=== PATIENT | female | born 1985 | race Caucasian/White ===

== ENCOUNTER 2022-08-16 16:29 | Outpatient (REF) | payer MEDICAID, SELFPAY ==
--- NOTE | ~2022-08-16 | XR_ITS ---
EXAMINATION: XR CHEST 2 VIEWS CLINICAL INFORMATION: Shortness of breath and cough of 3 days' duration. COMPARISON: None. TECHNIQUE: Frontal and lateral views of the chest were obtained. FINDINGS: The heart, great vessels, pulmonary vasculature and mediastinum are normal. There is a small moderate patchy infiltrate in the mid left lung, likely the upper lobe. There is no acute osseous abnormality. XR/XR chest 2V IMPRESSION: A mild to moderate patchy mid left lung infiltrate is seen, consistent with acute pneumonia. A preliminary report was provided by the [facility] on 08/19/2022.
== END 2022-08-16 16:30 | disposition home or self-care (01) ==
LOC: HO.XRAY 16:29
PROVIDERS: PCP Nurse Practitioner Family; Visit Provider Nurse Practitioner Family
DX: R05.9 Cough, unspecified (principal)
CPT/HCPCS: 71046

== ENCOUNTER 2022-12-28 12:26 | Outpatient (REF) | payer MEDICAID, SELFPAY ==
--- NOTE | ~2022-12-28 | XR_ITS ---
EXAMINATION: XR RIBS, LEFT CLINICAL INFORMATION: Chest pain COMPARISON: None available. TECHNIQUE: 3 views of the left ribs were obtained. Chest PA 1 view FINDINGS: Lungs are clear. No consolidation, pneumothorax, or pleural effusion. The cardiomediastinal silhouette and pulmonary vasculature are normal. Osseous structures are unremarkable. Ribs are intact. No fractures are identified. XR/XR ribs LT min 3V w CXR1V IMPRESSION: Unremarkable chest and left rib series.
== END 2022-12-28 12:27 | disposition home or self-care (01) ==
LOC: HO.XRAY 12:26
PROVIDERS: PCP Internal Medicine; Visit Provider Internal Medicine
DX: R07.9 Chest pain, unspecified (principal)
CPT/HCPCS: 71101

== ENCOUNTER 2023-09-15 09:48 | Outpatient (REF) | payer MEDICAID, SELFPAY ==
[2023-09-15 11:28] LABS: MANUAL DIFF FLAG NO
[2023-09-15 11:41] LABS: Basophils Absolute Auto 0.1 X10*3/uL (0.0-0.2); Basophils Percent Auto 0.5 % (0-2); Eosinophils Absolute Auto 0.1 X10*3/uL (0.0-0.4); Eosinophils Percent Auto 0.8 % (0-4); Hematocrit 39.5 % (37.0-47.0); Hemoglobin 12.8 g/dl (12.0-16.0); Imm Gran Abs Auto 0.07 X10*3/uL (0.00-0.03); Imm Gran Pct Auto 0.7 % (0.0-0.4); Lymphocytes Absolute Auto 1.9 X10*3/uL (1.2-4.9); Lymphocytes Percent Auto 19.6 % (20-40); Mean Corpuscular HGB Conc 32.4 g/dl (31.0-35.0); Mean Corpuscular Hemoglobin 27.6 pg (27.0-33.0); Mean Corpuscular Volume 85.1 fL (80.0-98.0); Mean Platelet Volume 11.7 fL (9.4-12.3); Monocytes Absolute Auto 0.7 X10*3/uL (0.1-1.2); Monocytes Percent Auto 7.4 % (2-11); Neutrophils Absolute Auto 6.7 x10*3/uL (2.0-8.3); Platelet Count 286 X10*3/uL (160-400); Red Blood Count 4.64 X10*6/uL (4.20-5.50); White Blood Count 9.5 X10*3/uL (4.8-10.8)
[2023-09-15 12:01] LABS: Alanine Aminotransferase 26 U/L (0-31); Albumin Level 3.9 g/dL (3.5-5.0); Alkaline Phosphatase 66 U/L (39-117); Anion Gap 11 (12-20); Aspartate Amino Transferase 27 U/L (5-31); Bilirubin Direct 0.2 mg/dL (0.0-0.5); Bilirubin Total 0.4 mg/dL (0.0-1.0); Blood Urea Nitrogen 10 mg/dL (9-16); Calcium 9.2 mg/dL (8.4-10.2); Carbon Dioxide 24 mmol/L (22-29); Chloride 105 mmol/L (96-108); Estimated Glomerular Filt Rate > 60; Glucose Fasting 87 mg/dL (60-99); Lipase 25 U/L (8-78); Potassium 4.1 mmol/L (3.3-5.1); Sodium 136 mmol/L (135-145); Total Protein 7.7 g/dL (6.5-8.0)
[2023-09-15 12:23] LABS: HCG Quantitative < 2 mIU/mL; TSH reflex Free T4 0.82 uIU/mL (0.32-4.0)
== END 2023-09-15 09:49 | disposition home or self-care (01) ==
LOC: HO.HHCL 09:48
PROVIDERS: Visit Provider Pediatrics
DX: R10.10 Upper abdominal pain, unspecified (principal)
CPT/HCPCS: 36415; 80048; 80076; 83690; 84443; 84702; 85025

== ENCOUNTER 2025-02-19 13:06 | Outpatient (REF) | payer MEDICAID, SELFPAY ==
--- OUTSIDE RECORDS SUMMARY | 2025-02-13 13:41 | XMS_ITS | Encounter Summary ---
Author Organization [facility] Address [address] [place] [address] Care Team Providers Care Glass Smoother Name Role Phone Carmen Hilliard NP Primary Care Provider [phone] Reason for Referral * Imaging (Routine) - Closed Specialty Diagnoses / Procedures Referred By David t Referred To Contact Radiology Diagnoses Encounter for screening mammogram for malignant neoplasm of breast Procedures MG Mammo Digital Screening w Zully Travis MD [address] [address] Phone: tel: fax: [address] [address] Phone: tel: Referral ID Status Reason Start Date Expiration Date Visits Re quested Visits Authorized [id number] Closed 01/31/2025 01/31/2026 1 1 Reason for Visit * Imaging (Routine) - Closed Specialty Diagnoses / Procedures Referred By Contac t Referred To Contact Radiology Diagnoses Encounter for screening mammogram for malignant neoplasm of breast Procedures MG Mammo Digital Screening w Zully Travis MD [address] [address] Phone: tel: fax: [address] [address] Phone: tel: Referral ID Status Reason Start Date Expiration Date Visits Re quested Visits Authorized [id number] Closed 01/31/2025 01/31/2026 1 1 Encounter Details Date Type Department Care Team (Latest Contact Info) Description 02/13/2025 1:41 PM EDT - 02/13/2025 11:59 PM EDT Hospital [facility] [address] [phone] Encounter for screening mammogram for malignant neoplasm of breast Discharge Disposition: Home or Self Care Social History Tobacco Use Types Packs/Day Years Used Date Smoking Tobacco: Never Smokeless Tobacco: Never Alcohol Use Standard Drinks/Week Comments Yes 0 (1 standard drink = 0.6 oz pur e alcohol) Comments No Sex and Gender Information Value Date Recorded Sex Assigned at Not on file Legal Sex Female 5:37 AM EST Gender Identity Not on file Sexual Orientation Not on file documented as of this encounter Last Filed Vital Signs Vital Sign Reading Time Taken Comments Blood Pressure - - Pulse - - Temperature - - Respiratory Rate - - Oxygen Saturation - - Inhaled Oxygen Concentration - - Weight 88.5 kg (195 lb) 02/13/2025 1:56 PM EDT Height 170.2 cm (5' 7 ) 02/13/2025 1:56 PM EDT Body Mass Index 30.54 02/13/2025 1:56 PM EDT documented in this encounter Discharge Disposition Disposition Code Departure Means Destination Home or Self Care documented in this encounter Plan of Treatment Not on file documented as of this encounter Procedures Procedure Name Priority Date/Time Associated Diagnosis Comments MG MAMMO DIGITAL SCREENING W IRVING BILAT Routine 02/13/2025 2:32 PM EDT Encounter for screening mammogram for malignant neoplasm of breast documented in this encounter Results * MG Mammo Digital Screening w Irving bilat (02/13/2025 2:32 PM EDT) Anatomical Region Laterality Modality Breast Bilateral Mammography 02/13/2025 2:41 PM EDT Impressions 02/13/2025 3:05 PM EDT Benign. BI-RADS CATEGORY: 2 - BENIGN RECOMMENDATION: Screening bilateral mammogram is recommended in 1 year. Mammo Location: [facility], [address] [place] [address], [id number], . -------- FINAL REPORT -------- Dictated By: Rafael Palacios Dictated Date: 02/13/2025 14:41 ET Assigned Physician: Rafael Palacios Reviewed and Electronically Signed By: Rafael Palacios Signed Date: 02/13/2025 15:05 ET Workstation ID: [id number] Transcribed By: Self Edit Transcribed Date: 02/13/2025 14:41 ET Narrative 02/13/2025 3:05 PM EDT CLINICAL: 39 years old, Female, routine annual exam. COMPARISON: 01/05/2023. TECHNIQUE: Bilateral MLO and CC views with implant displaced views were obtained digitally with 3-D mammogram (digital breast tomosynthesis). Computer-aided detection was utilized in evaluation of this exam (CAD). FINDINGS: Bilateral silicone implants. No suspicious mass or architectural distortion. No suspicious calcification. There has been no significant change from prior exam(s). BREAST DENSITY: B - There are scattered areas of fibroglandular density. Procedure Note Rafael Palacios MD - 02/13/2025 CLINICAL: 39 years old, Female, routine annual exam. COMPARISON: 01/05/2023. TECHNIQUE: Bilateral MLO and CC views with implant displaced views wereobtained digitally with 3-D mammogram (digital breast tomosynthesis).Computer-aided detection was utilized in evaluation of this exam (CAD). FINDINGS: Bilateral silicone implants. No suspicious mass or architectural distortion. No suspiciouscalcification. There has been no significant change from prior exam(s). BREAST DENSITY: B - There are scattered areas of fibroglandular density. IMPRESSION: Benign. BI-RADS CATEGORY: 2 - BENIGN RECOMMENDATION: Screening bilateral mammogram is recommended in 1 year. Mammo Location: [facility], [address] [place] [address], [id number], . -------- FINAL REPORT -------- Dictated By: Rafael Palacios Dictated Date: 02/13/2025 14:41 ET Assigned Physician: Rafael Palacios Reviewed and Electronically Signed By: Rafael Palacios Signed Date: 02/13/2025 15:05 ET Workstation ID: [id number] Transcribed By: Self Edit Transcribed Date: 02/13/2025 14:41 ET Zully Aguirre MD IMG BI PROCEDURES Fin al Result documented in this encounter Visit Diagnoses Diagnosis Encounter for screening mammogram for malignant neoplasm of breast documented in this encounter Care Teams Glass Smoother Relationship Specialty Start Date End Date Carmen Hilliard NP [address] [phone] PCP - General 10/12/16 documented as of this encounter
--- NOTE | ~2025-02-19 | XR_ITS ---
EXAMINATION: XR CHEST CLINICAL INFORMATION: sob/ asthma exacerbation COMPARISON: 12/28/2022. TECHNIQUE: 2 views of the chest were obtained. FINDINGS: The cardiac, hilar, and mediastinal contours are normal. The lungs are clear bilaterally. There is no pneumothorax or pleural effusion. There is no focal osseous or soft tissue abnormality. XR/XR chest 2V IMPRESSION: Normal chest. Electronically signed by: Guerrero Guerin MD 02/19/2025 01:35 PM EDT
--- OUTSIDE RECORDS SUMMARY | 2025-02-19 11:30 | XMS_ITS | Encounter Summary ---
Author Organization [employer] Address [address] [facility] 7 [place] [address] Care Team Providers Care Pharmacy Informatics Specialist Name Role Phone Zully Alcocer MD Primary Care Provide r Doris Watts RN Unavailable [phone] Reason for Visit * Reason Comments Asthma Encounter Details Date Type Department Care Team (Late st Contact Info) Description 02/19/2025 11:30 AM EDT Office Visit [facility] [address] [place], [place] [phone] Rachel Magdaleno MD [address] [place], [place] [phone] Mild intermittent asthma with exacerbation (Primary Dx) Social History Tobacco Use Types Packs/Day Years Used Date Smoking Tobacco: Never Passive Smoke Exposure: Never Smokeless Tobacco: Never Alcohol Use Standard Drinks/Week Comments Yes 0 (1 standard drink = 0.6 oz pur e alcohol) oca Depression Answer Date Recorded Patient Health Questionnaire-9 Score 6 11/02/2024 Patient Health Questionnaire-9 Score 6 11/02/2024 Last PHQ-9: Questionnaire Data Not on file 0 11/02/2024 Housing Stability Answer Date Recorded What is your housing situation today? I have tobi odonnell 11/02/[address] you li ve. Do you have problems with any of the following? I am not sure 11/02/2024 Food Insecurity Answer Date Recorded Within the past 12 months, y ou worried that your food would run out before you got money to buy more: Sometimes True 2024 Within the past 12 months,th e food you bought just didn't last and you didn't have enough money to get more: Sometimes True 11/02/2024 Transportation Answer Date Recorded In the past 12 months, has l ack of transportation kept you from medical appts, meetings, work or from getting things needed for daily living? No 11/02/2024 Utilities Answer Date Recorded In the past 12 months, has t he electric, gas, oil or water company threatened to shut off services in your home? No 11/02/2024 Depression Answer Date Recorded Patient Health Questionnaire-2 Score 2 11/02/2024 Internet Access Answer Date Recorded Internet Access Q1 Yes 11/02/2024 Internet Access Q2 Not on file 11/02/2024 Comments Unknown Intention Date Recorded No desire to become (finding) 0 02/19/2025 Sex and Gender Information Value Date Recorded Sex Assigned at Female 04/05/2022 10:16 AM EDT Legal Sex Female 10:16 AM EDT Gender Identity Female 04/05/2022 10:16 AM EDT Sexual Orientation Straight 04/05/2022 10 :16 AM EDT documented as of this encounter Last Filed Vital Signs Vital Sign Reading Time Taken Comments Blood Pressure 130/80 02/19/2025 11:33 AM EDT Pulse 68 02/19/2025 11:33 AM EDT Temperature 36.4 C (97.6 F) 02/19/2025 11:33 AM EDT Respiratory Rate 22 02/19/2025 11:33 AM EDT Oxygen Saturation 100% 02/19/2025 11:33 AM EDT Inhaled Oxygen Concentration - - Weight 93.9 kg (207 lb) 02/19/2025 11:33 AM EDT Height 170.2 cm (5' 7 ) 02/19/2025 11:33 AM EDT Body Mass Index 32.42 02/19/2025 11:33 AM EDT documented in this encounter Progress Notes * Rachel Magdaleno MD - 02/19/2025 11:30 AM EDT SUBJECTIVE: Bonny Groves is a 39 y.o. year old female who presents for sick visit/asthma. Denies recent illness, injury, or hospitalization. Acute Concerns: Co SOB, cough, pleuritic CP x 4d, not improving with albuterol Q6h, last nebs was this morning. Negfever, chills, sputum production. 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 She's a non smoker. LMP 1y ago, jon [place] Social History Social History Narrative Not on file Problem List[1] Family History[2] Review of Systems Constitutional: Negative for chills, fatigue and fever. HENT: Negative for congestion, ear pain, nosebleeds, rhinorrhea, sinus pressure, sore throat and trouble swallowing. Eyes: Negative for pain and discharge. Respiratory: Positive for chest tightness and shortness of breath. Negative for cough. Cardiovascular: Negative for chest pain, palpitations and leg swelling. Gastrointestinal: Negative for abdominal pain, blood in stool, constipation, diarrhea and nausea. Endocrine: Negative for polydipsia and polyuria. Genitourinary: Negative for dysuria, frequency, genital sores, pelvic pain and vaginal discharge. Musculoskeletal: Negative for back pain and neck pain. Skin: Negative for rash. Allergic/Immunologic: Negative for environmental allergies. Neurological: Negative for dizziness, seizures, weakness, light-headedness and headaches. Hematological: Negative for adenopathy. Psychiatric/Behavioral: Negative for agitation, behavioral problems, self-injury and suicidal ideas. OBJECTIVE: Vitals: 02/19/25 1133 BP: 130/80 Pulse: 68 Resp: 22 Temp: 97.6 ??F (36.4 ??C) SpO2: 100% Physical Exam HENT: Right Ear: Tympanic membrane and ear canal normal. Left Ear: Tympanic membrane and ear canal normal. Mouth/Throat: Mouth: Mucous membranes are moist. Pharynx: No oropharyngeal exudate or posterior oropharyngeal erythema. Eyes: Pupils: Pupils are equal, round, and reactive to light. Cardiovascular: Rate and Rhythm: Regular rhythm. Pulses: Normal pulses. Heart sounds: Normal heart sounds. No murmur heard. Pulmonary: Breath sounds: Examination of the right-middle field reveals wheezing. Examination of the left-middle field reveals wheezing. Wheezing (end expiratory) present. Abdominal: General: Bowel sounds are normal. Palpations: Abdomen is soft. Tenderness: There is no abdominal tenderness. Musculoskeletal: General: Normal range of motion. Cervical back: Neck supple. Skin: General: Skin is warm. Neurological: General: No focal deficit present. Mental Status: She is alert and oriented to person, place, and time. Psychiatric: Mood and Affect: Mood normal. Behavior: Behavior normal. Problem List Items Addressed This Visit Mild intermittent asthma with exacerbation - Primary Rapid covid test done today is negative albuterol updraft today, continue 2 puffs inhaled every 6 hours for the next week Prednisone 40 mg today, continue Medrol pack Order CXR, will start antibiotics if there is evidence of consolidation or increased bronchial markings. Take Tylenol as needed for pain/chest pain, it may be related to increased use of albuterol. She will be out of school today and tomorrow, if symptoms do not improve after 48 hours on prednisone, she needs to return to clinic/[facility] Relevant Medications albuterol (2.5 MG/3ML) 0.083% nebulizer solution 2.5 mg (Completed) predniSONE (Deltasone) tablet 40 mg (Completed) methylPREDNISolone (Medrol Dospak) 4 MG tablets Other Relevant Orders XR Chest 2 Views (Completed) POCT Rapid Covid-19 BinaxNOW (Completed) Follow Up: Medications Ordered Prior to Encounter[3] [1] Patient Active Problem List Diagnosis Dysmenorrhea Irregular periods Mild intermittent asthma Vitamin D deficiency Breast tenderness in female Chest pain not due to acute coronary syndrome Adjustment disorder with mixed anxiety and depressed mood Health care maintenance Acute conjunctivitis of both eyes Mild intermittent asthma with exacerbation [2] No family history on file. [3] Current Outpatient Medications on File Prior to Visit Medication Sig Dispense Refill albuterol 108 (90 Base) MCG/ACT inhaler Inhale 2 puffs every 4 (four) hours if needed for wheezing.18 g 3 cholecalciferol (Vitamin D-3) 50 MCG (1999 UT) capsule Take by mouth in the morning. hydrOXYzine pamoate (Vistaril) 25 MG capsule Take 1 capsule (25 mg) by mouth every 8 (eight) hours if needed for itching. 30 capsule 3 ibuprofen 600 MG tablet Take 1 tablet (600 mg) by mouth Once daily as needed for headaches. 30 tablet 0 norethindrone (Rere) 0.35 MG tablet Take 1 tablet by mouth at bed time. omeprazole (PriLOSEC) [address] capsule TAKE 1 CAPSULE BY MOUTH IN THE MORNING 90 capsule 0 sertraline (Zoloft) 50 MG tablet TAKE 1 TABLET(50 MG) BY MOUTH DAILY 30 tablet 0 topiramate (Topamax) 25 MG tablet Take 1 tablet (25 mg) once daily for 1 week, if tolerated may increase to 2 tablets (50mg) daily for migraine prevention. 67 tablet 11 No current facility-administered medications on file prior to visit. documented in this encounter Miscellaneous Notes * Assessment & Plan Note - Rachel Magdaleno MD - 02/19/2025 3:56 PM EDT Associated Problem(s): Mild intermittent asthma with exacerbation Rapid covid test done today is negative albuterol updraft today, continue 2 puffs inhaled every 6 hours for the next week Prednisone 40 mg today, continue Medrol pack Order CXR, will start antibiotics if there is evidence of consolidation or increased bronchial markings. Take Tylenol as needed for pain/chest pain, it may be related to increased use of albuterol. She will be out of school today and tomorrow, if symptoms do not improve after 48 hours on prednisone, she needs to return to clinic/[facility] documented in this encounter Plan of Treatment Not on file documented as of this encounter Procedures Procedure Name Priority Date/Time Associated Diagnosis Comments XR CHEST 2 VIEWS Routine 02/19/2025 1:23 PM EDT Mild intermittent asthma with exacerbation POCT RAPID COVID ANTIGEN Routine 02/19/2025 12:53 PM EDT Mild intermittent asthma with exacerbation documented in this encounter Results * XR Chest 2 Views (02/19/2025 1:23 PM EDT) Anatomical Region Laterality Modality Chest Radiographic Chery ging 02/19/2025 1:23 PM EDT Narrative 02/19/2025 1:38 PM EDT [address] [address] XRay Report Signed Patient: Bonny Groves MR#: [id number] : 1985 Acct:[id number] Age/Sex: 39 / F ADM Date: 02/19/25 Loc: HO.CX Attending Dr: Rahcel Magdaleno MD Ordering Physician: Rachel Magdaleno MD Date of Service: 02/19/25 Procedure(s): XR chest 2V Accession Number(s): [id number] cc: Zluly Alcocer MD; Rachel Magdaleno MD Reason for Exam: sob/ asthma exacerbation EXAMINATION: XR CHEST CLINICAL INFORMATION: sob/ asthma exacerbation COMPARISON: 12/28/2022. TECHNIQUE: 2 views of the chest were obtained. FINDINGS: The cardiac, hilar, and mediastinal contours are normal. The lungs are clear bilaterally. There is no pneumothorax or pleural effusion. There is no focal osseous or soft tissue abnormality. XR/XR chest 2V IMPRESSION: Normal chest. Electronically signed by: Guerrero Guerin MD 02/19/2025 01:35 PM EDT Dictated By: Guerrero Guerin MD Signed By: <Electronically signed by Guerrero Guerin MD in OV> 02/19/25 1335 DD/ 1323 TD/TT: 02/19/25 1324 Managing Attorney: Procedure Note Donotuseinterpreter, Image - 02/19/2025 [place] [address] XRay Report Signed Patient: Bonny GrovesMR#: [id number] : 1985Acct:[id number] Age/Sex: 39 / FADM Date: 02/19/25 Loc: .HHCX Attending Dr: Rachel Magdaleno MD Ordering Physician: Rachel Magdaleno MD Date of Service: 02/19/25 Procedure(s): XR chest 2V Accession Number(s): [id number] cc: Zully Alcocer MD; Rachel Magdaleno MD Reason for Exam: sob/ asthma exacerbation EXAMINATION: XR CHEST CLINICAL INFORMATION: sob/ asthma exacerbation COMPARISON: 12/28/2022. TECHNIQUE: 2 views of the chest were obtained. FINDINGS: The cardiac, hilar, and mediastinal contours are normal. The lungs are clear bilaterally. There is no pneumothorax or pleural effusion. There is no focal osseous or soft tissue abnormality. XR/XR chest 2V IMPRESSION: Normal chest. Electronically signed by: Guerrero Guerin MD 02/19/2025 01:35 PM EDT RP Dictated By: Guerrero Guerin MD Signed By: <Electronically signed by Guerrero Guerin MD in OV> 02/19/25 1335 DD/ 1323 TD/TT: 02/19/25 1324 Managing Attorney: Rachel Magdaleno MD IMG XR PROCEDURES Edited Result - Final * POCT Rapid Covid-19 BinaxNOW (02/19/2025 12:53 PM EDT) [facility] Signature Rapid COVID Ag Negative QC Media Lot # [id number] Lot# Expiration Date 72,526 Swab 02/19/2025 12:5 3 PM EDT Rachel Magdaleno MD POINT OF CARE TEST ENTER /EDIT ORDERABLES Final Result documented in this encounter Visit Diagnoses Diagnosis Mild intermittent asthma with exacerbation- Primary Unspecified asthma, with exacerbation documented in this encounter Administered Medications Inactive Administered Medications - up to 3 most recent administrations Medication Order MAR Action Action Date Dose Rate Site albuterol (2.5 MG/3ML) 0.083% nebulizer solution 2.5 mg 2.5 mg, Nebulization, Once, On Tue02/19/25 at 1230, For 1 doseIndications:Mild intermittent asthma with exacerbation Given 02/19/2025 12:30 PM EDT 2.5 mg predniSONE (Deltasone) tablet 40 mg 40 mg, Oral, Once, On Tue02/19/25 at 1230, For 1 doseIndications:Mild intermittent asthma with exacerbation Given 02/19/2025 12:30 PM EDT 40 mg documented in this encounter Additional Health Concerns Assessment Noted Time PHQ-9 Depression Total Score: 6 11/03/19 1:41 PM EDT documented as of this encounter Care Teams Pharmacy Informatics Specialist Relationship Specialty Start Date End Date Zully Alcocer MD [address] [place] [address] PCP - General Family Medicine 11/19/21 Doris Watts RN [address] [place] [address] Registered Nurse Family Medicine 11/02/24 documented as of this encounter
--- OUTSIDE RECORDS SUMMARY | 2025-02-19 17:03 | XMS_ITS | Encounter Summary ---
Author Organization [employer] Address [address] [place] [address] [place] [address] Care Team Providers Care All Terrain Vehicle Technician Name Role Phone Zully Alcocer MD Primary Care Provide r Doris Watts RN Unavailable Monica Groves Unavailable Encounter Details Date Type Department Care Team (Late st Contact Info) Description 11/02/2024 Orders Only [facility] [address] [place] [address] Provider, MD Emily Social History Tobacco Use Types Packs/Day Years [...] Q2 Not on file 11/02/2024 Comments Unknown Sex and Gender Information Value Date Recorded Sex Assigned at Female 04/05/2022 10:16 AM EDT Legal Sex Female 10:16 AM EDT Gender Identity Female 04/05/2022 10:16 AM EDT Sexual Orientation Straight 04/05/2022 10 :16 AM EDT documented as of this encounter Functional Status * Over the past 2 weeks, how often have you been bothered by any of the following problems? Question Answer Date of Assessment Author Patient Health Questionnaire -2 Score 2 11/02/2024 1:41 PM EDT Ghazala Moran MA * Little interest or pleasure in doing things Answer Date of Assessment Author Several days 11/02/2024 1:41 PM CORAT Di Moran MA * Feeling down, depressed, or hopeless Answer Date of Assessment Author Several days 11/02/2024 1:41 PM CORAT Di Moran MA * Trouble falling or staying asleep, or sleeping too much Answer Date of Assessment Author Not at all 11/02/2024 1:41 PM Di Wyatt MA * Feeling tired or having little energy Answer Date of Assessment Author More than half the days 11/02/2024 1:41 PM CORAT Ghazala Cooper MA * Poor appetite or overeating Answer Date of Assessment Author Not at all 11/02/2024 1:41 PM Di Wyatt MA * Feeling bad about yourself - or that you are a failure or have let yourself or your family down Answer Date of Assessment Author Several days 11/02/2024 1:41 PM Di Wyatt MA * Trouble concentrating on things, such as reading the newspaper or watching television Answer Date of Assessment Author Several days 11/02/2024 1:41 PM Di Wyatt MA * Moving or speaking so slowly that other people could have noticed? Or the opposite - being so fidgety or restless that you have been moving around a lot more than usual. Answer Date of Assessment Author Not at all 11/02/2024 1:41 PM Di Wyatt MA * Thoughts that you would be better off or hurting yourself in some way Answer Date of Assessment Author Not at all 11/02/2024 1:41 PM Di Wyatt MA * Patient Health Questionnaire-9 Score Answer Date of Assessment Author 6 11/02/2024 1:41 PM Di Wyatt MA * How difficult have these problems made it for you to do your work, take care of things at home, or get along with other people? Answer Date of Assessment Author Somewhat difficult 11/02/2024 1:41 PM Ghazala Wyatt MA * Over the last 2 weeks, how often have you been bothered by any of the following problems? Question Answer Date of Assessment Author Feeling nervous, anxious, or on edge 1 11/02/2024 1:41 PM Ghazala Wyatt MA Not being able to stop or co ntrol worrying 0 11/02/2024 1:41 PM Ghazala Wyatt MA Worrying too much about diff erent things 0 11/02/2024 1:41 PM Ghazala Wyatt MA Trouble relaxing 1 11/02/2024 1:41 PM Ghazala Cabrera MA Being so restless that it is hard to sit still 0 11/02/2024 1:41 PM Ghazala Wyatt MA Becoming easily annoyed or irritable 0 11/02/2024 1:41 PM Ghazala Wyatt MA Feeling afraid as if somethi ng awful might happen 0 11/02/2024 1:41 PM Ghazala Wyatt MA ELZA-7 Total Score 2 11/02/2024 1:41 PM Ghazala Wyatt, MA documented as of this encounter Plan of Treatment Not on file documented as of this encounter Procedures Procedure Name Priority Date/Time Associated Diagnosis Comments CT HEAD WO CONTRAST Routine 11/01/2024 3:39 PM EDT documented in this encounter Results * CT Head w/o Contrast (11/01/2024 3:39 PM EDT) Anatomical Region Laterality Modality Head, Neck Computed Tomogra phy Historical Provider MD SALINAS CT PROCEDURES Final R esult documented in this encounter Visit Diagnoses Not on filedocumented in this encounter Additional Health Concerns Assessment Noted Time PHQ-9 Depression Total Score: 6 11/03/19 25 1:41 PM EDT documented as of this encounter Care Teams All Terrain Vehicle Technician Relationship Specialty Start Date End Date Zully Alcocer MD [address] [place] [address] PCP - General Family Medicine 11/19/21 Doris Watts RN [address] [place] [address] Registered Nurse Family Medicine 11/02/24 Monica Groves 11/02/24 12/13/24 documented as of this encounter
--- OUTSIDE RECORDS SUMMARY | 2025-02-19 17:03 | XMS_ITS | Clinical Summary ---
Author Organization [employer] Address [address] [place] [address] 7 [place] [address] Care Team Providers Care Beer Coil Cleaner Name Role Phone Zully Alcocer MD Primary Care Provide r Doris Watts RN Unavailable [phone] Allergies Active Allergy Reactions Criticality Noted Date Comments Cyclobenzaprine 01/15/2016 Other reaction(s): itching and vomiting Medications cholecalciferol (Vitamin D-3) 50 MCG (1999) capsule Take by mouth in the morning. 3 Active omeprazole (PriLOSEC) [address] capsule TAKE 1 CAPSULE BY MOUTH IN THE MORNING 90 capsule 4 Active sertraline (Zoloft) 50 MG tabletIndication s:Adjustment disorder with mixed anxiety and depressed mood TAKE 1 TABLET(50 MG) BY MOUTH DAILY 30 tablet 4 Active hydrOXYzine pamoate (Vistaril) 25 MG capsuleIndicatio ns:Adjustment disorder with mixed anxiety and depressed mood Take 1 capsule (25 mg) by mouth every 8 (eight) hours if needed for itching. 30 capsule 3 4 Active albuterol 108 (90 Base) MCG/ACT inhalerIndicatio ns:Mild intermittent asthma without complication Inhale 2 puffs every 4 (four) hours if needed for wheezing. 18 g 3 4 025 Active norethindrone (Rere) 0.35 MG tablet Take 1 tablet by mouth at bed time. 0 Active ibuprofen 600 MG tabletIndication s:Chronic migraine with aura without status migrainosus, not intractable Take 1 tablet (600 mg) by mouth Once daily as needed for headaches. 30 tablet 5 Active topiramate (Topamax) 25 MG tabletIndication s:Chronic migraine with aura without status migrainosus, not intractable Take 1 tablet (25 mg) once daily for 1 week, if tolerated may increase to 2 tablets (50mg) daily for migraine prevention. 67 tablet 11 5 Active methylPREDNISolo ne (Medrol Dospak) 4 MG tablets Follow schedule on package instructions 21 tablet 5 025 Active Hospital, Clinic, or Other Facility Administered Medication Ordered Dose Route Frequency Start Date End Date Status albuterol (2.5 MG/3ML) 0.083% nebulizer solution 2.5 mgIndications:Mild intermittent asthma with exacerbation 2.5 mg NEBULIZATION Once 02/19/2025 02/19/2025 Ended predniSONE (Deltasone) tablet 40 mgIndications:Mild intermittent asthma with exacerbation 40 mg PO Once 02/19/2025 02/19/2025 Ended Active Problems Problem Noted Date Diagnosed Date Mild intermittent asthma with exacerbation 02/19 Assessment & Plan (02/19/2025 3:56 PM EDT): Rapid covid test done today is negative [...] on prednisone, she needs to return to clinic/[facility] Acute conjunctivitis of both eyes 11/22/2023 Assessment & Plan (11/22/2023 11:52 AM EDT): I will prescribe for her eye drops, if symptoms persist or worse it was advise to go to [facility] for further evaluation Health care maintenance 10/18/2023 Adjustment disorder with mixed anxiety and depre ssed mood 10/06/2023 Assessment & Plan (11/22/2023 11:53 AM EDT): Counseling done C/w therapist C/w sertraline 50mg daily and hydroxyzine PRN RTC 3 months Assessment & Plan (10/18/2023 4:41 PM EDT): C/w sertraline 50mg daily for now RTC 4 weeks televisit if diarrhea and other GI symptoms are persistent, plan is to switch her to citalopram, c/w hydroxyzine PRN Assessment & Plan (10/07/2023 11:11 AM EDT): Counseling done Patient brought FMLA papers to be fill out, she is supposed to be out for surgery but was wondering if she should be out before this because of her depression, I told her I will fill out for her to be out 2 weeks for mental health issues I will start her on sertraline 50mg and hydorxyzine PRN RTC next available transfer appointment Breast tenderness in female 12/28/2022 Assessment & Plan (12/28/2022 12:45 PM EDT): It seems to be muscular, given recent surgery I told her to fu closely with Dr. Méndezqs Will order a left sided mammogram with US and FU with PCP in 1 month treat pain with ibuprofen alternate with tylenol Chest pain not due to acute coronary syndrome Assessment & Plan (12/28/2022 12:45 PM EDT): atypical, see above order x-ray of the ribs Pt needs transfer pt appointment Mild intermittent asthma 07/26/2019 Assessment & Plan (10/18/2023 4:39 PM EDT): Patient educated to avoid asthma triggers C/w albuterol PRN Dysmenorrhea 11/20/2018 Irregular periods 11/20/2018 Assessment & Plan (10/18/2023 4:40 PM EDT): Patient is schedule for hysterectomy Vitamin D deficiency 02/15/2018 Encounters Date Type Department Care Team Description 02/19/2025 11:30 AM EDT Office Visit [address] [address] Rachel Magdaleno MD Mild intermittent asthma with exacerbation (Primary Dx) 02/19/2025 Travel 02/19/[address] [address] Zully Alcocer MD Nurse Triage 01/30/2025 Orders Only [address] [address] Zully Alcocer MD Eye exam, routine (Primary Dx) 01/01/2025 Patient Outreach [address] [address] Zully Alcocer MD Pre-visit Planning (SDOH screening completed on 11/02/2024) 12/13/2024 Patient Outreach [address] [address] Zully Alcocer MD Care Coordination (C3/SEBAS Rivera missed initial assessment_closed ) 12/10/2024 Patient Outreach [facility] [address] [place] [address] Zully Alcocer MD 12/06/2024 Patient Outreach [address] [address] Zully Alcocer MD Care Coordination (C3/MICAH Groves, attempt to RS initial assessment_lvm) 11/28/2024 Patient Outreach [address] [address] Zully Alcocer MD Care Coordination (C3CM/MICAH Groves, TC attempt to RS initial assessment_lvm) 11/23/2024 Patient Outreach [facility] [address] [place] [address] Zully Alcocer MD 11/21/2024 Patient Outreach [address] [address] Zully Alcocer MD Care Coordination (C3CM/CHW Geovany Snow reschedule initial assessment_lvm ) from Last 3 Months Immunizations Immunization Administration Dates Next Due DTP 07/30/1984,05/08/1984,03/07/1984 DTaP 08/31/1988,07/31/1985 Hep A, Adult 01/23/2018,02/19/2013 Hep B, Adolescent or Pediatric 11/12/1997,1996,01/29/1997 IPV 07/31/1985, 5,05/08/1984,1983 Influenza, Split (incl. sonu fied surface antigen) 02/13/2013 MMR 07/26/2011,01/10/1995 Pneumococcal Conjugate PCV 20 10/18/2023 TD (adult), 2 Lf tetanus tox oid, preservative free, adsorbed 04/22/1998 Tdap 10/18/2023,12/30/2010 Social History Tobacco Use Types Packs/Day Years Used Date Smoking Tobacco: Never Passive Smoke Exposure: Never Smokeless Tobacco: Never Tobacco Cessation:Counseling Given: Not Answered Alcohol Use Standard Drinks/Week Comments Yes 0 [...] Orientation Straight 04/05/2022 10 :16 AM EDT Last Filed Vital Signs Vital Sign Reading [...] Mass Index 32.42 02/19/2025 11:33 AM EDT Plan of Treatment Health Maintenance Due Date Last Done Comments Lipid Panel 1985 HPV Vaccines (1 - 3-dose series) 12/19/1998 HPV/Cotest 02/06/2021 Pap Smear 02/06/2021 02/07/2020 COVID-19 Vaccine ( season) 2025 10/16/2020, 09/18/2020 Influenza Vaccine (#1) 2025 02/13/2013 Alcohol/Substance Use Screening 11/02/2025 11/02/2024 Depression Screening 11/02/2025 11/02/2024, 11/03/19 Disability Screening 11/02/2025 11/02/2024 SDOH Screening 11/02/2025 11/02/2024 Mammogram 02/13/2026 02/13/2025, 02/04, 02/13/2025, Additional history exists Family Planning (PISQ) 02/19/2026 02/19/2025 Tobacco Screening 02/19/2026 02/19/2025 DTaP/Tdap/Td Vaccines (8 - Td or Tdap) 10/17/2033 10/18/2023, 12/30/2010, 04/22/1998, Additional history exists Zoster Vaccines (1 of 2) 12/19/2033 RSV Patients and Patients Aged 60 years or older (1 - 1-dose 75+ series) 12/19/2058 IPV Vaccines Completed 07/31/1985, 07/08, 05/08/1984, Additional history exists Hepatitis B Vaccines Completed 11/12/1997, 03/07/1997, 01/29/1997 Hepatitis A Vaccines Aged Out 01/23/2018, 02/20/20 13 No longer eligible based on patient's age to complete this topic HIV Screening Completed 01/21/2021, 08/07/2019 Hepatitis C Screening Completed 01/21/2021 Pneumococcal Vaccine: Pediatrics (0 to 5 Years) and At-Risk Patients (6 to 49) Years Completed 10/18/2023 Cervical Cancer Screening Discontinued HIB Vaccines Aged Out No longer eligi ble based on patient's age to complete this topic Meningococcal B Vaccine Aged Out No l onger eligible based on patient's age to complete this topic Meningococcal Vaccine Aged Out No jude beni eligible based on patient's age to complete this topic RSV under 20 months Aged Out No longe r eligible based on patient's age to complete this topic Rotavirus Vaccines Aged Out No longer eligible based on patient's age to complete this topic Procedures Procedure Name Priority Date/Time Associated Diagnosis Comments XR CHEST 2 VIEWS Routine 02/19/2025 1:23 PM EDT Mild intermittent asthma with exacerbation POCT RAPID COVID ANTIGEN Routine 02/19/2025 12:53 PM EDT Mild intermittent asthma with exacerbation BI MAMMOGRAM SCREENING TOMOSYNTHESIS BILATERAL Routine 02/13/2025 Breast cancer screening by mammogram ZZZ HISTORICAL HEPATITIS C AB W/REFL TO HCV RNA, QN, PCR Routine 01/21/2021 10:33 AM EDT HIV 1/2 ANTIGEN/ANTIBODY, FOURTH GENERATION W/RFL Routine 01/21/2021 10:33 AM EDT HM PAP/HPV Routine 02/07/2020 1:22 PM EDT from Last 3 Months or Most Recently Relevant to Health Maintenance Results * XR Chest 2 Views (02/19/2025 1:23 PM EDT) Anatomical Region Laterality Modality Chest Radiographic Chery ging 02/19/2025 1:23 PM EDT Narrative 02/19/2025 1:38 PM EDT [address] [address] XRay Report Signed Patient: Bonny Groves MR#: [id number] : 1985 Acct:[id number] Age/Sex: 39 / F ADM Date: 02/19/25 [facility]: Rachel Magdaleno MD Ordering Physician: Rachel Magdaleno MD Date of Service: 02/19/25 Procedure(s): XR chest 2V Accession Number(s): [id number] cc: Zully Alcocer MD; Rachel Magdaleno MD [...] 02/19/25 1335 DD/ 1323 TD/TT: 02/19/25 1324 Embroidery Assistant: Procedure Note Donotuseinterpreter, Image - 02/19/[address] [address] XRay Report Signed Patient: Bonny GrovesMR#: [id number] : 1985Acct:[id number] Age/Sex: 39 / FADM Date: 02/19/25 Loc: [facility] Attending Dr: Rachel Magdaleno MD Ordering Physician: Rachel Magdaleno MD Date of Service: 02/19/25 Procedure(s): XR chest 2V Accession Number(s): [id number] cc: Zully Alcocer MD; Rachel Magdaleno MD [...] 02/19/25 1335 DD/ 1323 TD/TT: 02/19/25 1324 Embroidery Assistant: Rachel Magdaleno MD IMG XR PROCEDURES Edited Result - Final * POCT Rapid Covid-19 BinaxNOW (02/19/2025 12:53 PM EDT) Rapid COVID Ag Negative QC Media Lot # [id number] Lot# Expiration Date [id number] Swab 02/19/2025 12:5 3 PM EDT Rachel Magdaleno MD POINT OF CARE TEST ENTER /EDIT ORDERABLES Final Result * BI Mammogram Screening Tomosynthesis Bilateral (02/13/2025) Anatomical Region Laterality Modality Breast Bilateral Mammography Zully Aguirre MD IMG BI PROCEDURES Fin al Result * HEPATITIS C AB W/REFL TO HCV RNA, QN, PCR (01/21/2021 10:33 AM EDT) HEPATITIS C ANTIBODY NON-REACT BETY NON-REACT BETY [facility] INDEX 0.01 <1.00 [facility] Comment: HCV antibody was non-reactive. There is no laboratory evidence of HCV infection. In most cases, no further action is required. However, if recent HCV exposure is suspected, a test for HCV RNA (test code 57695) is suggested. For additional information please refer to http://Borqs.SmartHub/faq/OOQ05e6 (This link is being provided for informational/ educational purposes only.) 01/21/2021 10:3 3 AM EDT Teresa Gaston TEMPERING KILN TENDER HISTORICAL/NON ORDERABLE LABS Final Result [facility] [address] * HIV 1/2 ANTIGEN/ANTIBODY,FOURTH GENERATION W/RFL (01/21/2021 10:33 AM EDT) HIV-1/2 ANTIGEN AND ANTIBODIES, 4TH GENERATION W/ REFLEX NON-REACT BETY NON-REACT BETY [facility] Comment: HIV-1 antigen and HIV-1/HIV-2 antibodies were not detected. There is no laboratory evidence of HIV infection. PLEASE NOTE: This information has been disclosed to you from records whose confidentiality may be protected by state law. If your state requires such protection, then the state law prohibits you from making any further disclosure of the information without the specific written consent of the person to whom it pertains, or as otherwise permitted by law. A general authorization for the release of medical or other information is NOT sufficient for this purpose. For additional information please refer to http://Borqs.SmartHub/faq/BMI026 (This link is being provided for informational/ educational purposes only.) The performance of this assay has not been clinically validated in patients less than 2 years old. 01/21/2021 10:3 3 AM EDT Teresa Gaston TEMPERING KILN TENDER LAB BLOOD ORDERABLES Final Res ult [facility] [address] * HM PAP/HPV (02/07/2020 1:22 PM EDT) Historical Provider HEALTH MAINTENANCE Final Result from Last 3 Months or Most Recently Relevant to Health Maintenance Insurance HS FULL Care Teams Beer Coil Cleaner Relationship Specialty Start Date End Date Zully Alcocer MD [address] [place] [address] PCP - General Family Medicine 11/19/21 Doris Watts RN [address] [place] [phone] Registered Nurse Family Medicine 11/02/24
--- OUTSIDE RECORDS SUMMARY | 2025-02-19 17:03 | XMS_ITS ---
Author Organization [employer] Address [address] [place] [address] [place] [address] Care Team Providers Care Institution Librarian Name Role Phone Zully Alcocer MD Primary Care Provide r Doris Watts RN Unavailable [phone] CM Complex Status:Outreach In Progress (Enrolling) Start date:11/02/2024 Enrollment reason:ADT Feed Overview ED- Pt went to [facility] ED on 11/01/24. Case Team Name Relationship Phone Doris Watts RN(Responsible Staff) Registered Nurse [phone] Continued Care and Services Coordination
--- OUTSIDE RECORDS SUMMARY | 2025-02-19 17:03 | XMS_ITS | Encounter Summary ---
Author Organization [employer] Address [address] [facility] 7 [place] [address] Care Team Providers Care Automobile Service Station Mechanic Name Role Phone Zully Alcocer MD Primary Care Provide r Doris Watts RN Unavailable [phone] Germain Leydanoemi Unavailable Reason for Visit * Reason Onset Date Comments Nurse Triage 09/14/2023 Encounter Details Date Type Department Care Team (Late st Contact Info) Description 09/14/2023 Telephone [facility] [address] [place], [place] [phone] Zully Alcocer MD [address] [place], [place] [phone] Nurse Triage Social History Tobacco Use Types Packs/Day Years Used Date Smoking Tobacco: Never Passive Smoke Exposure: Never Smokeless Tobacco: Never Alcohol Use Standard Drinks/Week Comments Yes 0 (1 standard drink = 0.6 oz pur e alcohol) oca Housing Stability Answer Date Recorded What is your housing situation today? I have tobijonny odonnell 03/31/[address] you li ve. Do you have problems with any of the following? None of the above 03/31/2023 Food Insecurity Answer Date Recorded Within the past 12 months, y ou worried that your food would run out before you got money to buy more: Never True 03/31/2023 Within the past 12 months,th e food you bought just didn't last and you didn't have enough money to get more: Never True Transportation Answer Date Recorded In the past 12 months, has l ack of transportation kept you from medical appts, meetings, work or from getting things needed for daily living? No 03/31/2023 Utilities Answer Date Recorded In the past 12 months, has t he electric, gas, oil or water company threatened to shut off services in your home? No 03/31/2023 Depression Answer Date Recorded Patient Health Questionnaire-2 Score 0 12/28/2022 Comments Unknown Sex and Gender Information Value Date Recorded Sex Assigned at Female 04/05/2022 10:16 AM EDT Legal Sex Female 10:16 AM EDT Gender Identity Female 04/05/2022 10:16 AM EDT Sexual Orientation Straight 04/05/2022 10 :16 AM EDT documented as of this encounter Miscellaneous Notes * Telephone Encounter - Donna Roberts RN - 09/14/2023 1:13 PM EDT Triage call Pt had to cancel appt for 09/15/23 due to already scheduled apt with another Doctor. Pt is advised to come to [facility] at Pt convenience. Hours open till 8pm today and 830am-400p tomorrow. Pt agrees with this plan. * Telephone Encounter - Tom Rodriguez - 09/14/2023 1:06 PM EDT Tc from pt requesting to r/s sick on site scheduled for 09/15/23, appt is still expected. Please contact at [phone] * Telephone Encounter - Donna Roberts RN - 09/14/2023 9:19 AM EDT Triage call Pt reports diarrhea for 2 weeks now. Pt reports 4-6x/day watery stool. Neg for fever, vomiting, nausea. Pt reports abdominal pain comes and goes with diarrhea. Pt does report some cramping in the abdomen at times which Pt has never experienced before. Pt continues to eat but, notices a feeling of the food just sticking in throat . Pt is drinking fluids but, urine is dark yellow. Pt is offered to come to [facility] today but, unable to miss school. Apt with Dr. Black 09/15/23 @ [facility]. Ptagrees with disposition and home care reviewed. Insurance is verified as active prior to booking. Protocol Used: Diarrhea (Adult) Protocol-Based Disposition: See in Office or Video Visit Today Override (Final) Disposition: See in Office or Video Visit Today or Tomorrow Override Reason: No appointments available Video visit not offered Positive Triage Question: * Moderate diarrhea (e.g., 4-6 times / day more than normal) and present > 48 hours (2 days) * All higher-acuity triage questions were negative Care Advice Discussed: * Reassurance and Education - Diarrhea * Fluid Therapy During Mild to Moderate Diarrhea * Food and Nutrition During Mild to Moderate Diarrhea * Reasons To Call Back - Signs of dehydration occur (e.g., no urine over 12 hours, very dry mouth, lightheaded, etc.) - Moderate diarrhea lasts more than 2 days - Diarrhea lasts over 7 days - You become worse * Telephone Encounter - Clarita Driscoll - 09/14/2023 8:50 AM EDT Symptoms: Diarrhea, Abdominal Pain - Female - Not , Loss of Appetite Outcome: Talk to a nurse or provider within 15 minutes Reason: Severe pain now The caller accepted this outcome documented in this encounter Plan of Treatment Not on file documented as of this encounter Visit Diagnoses Not on filedocumented in this encounter Care Teams Automobile Service Station Mechanic Relationship Specialty Start Date End Date Zully Alcocer MD [address] [place] [address] PCP - General Family Medicine 11/19/21 Doris Watts RN [address] [place] [address] Registered Nurse Family Medicine 11/02/24 Monica Groves 11/02/24 12/13/24 documented as of this encounter
--- OUTSIDE RECORDS SUMMARY | 2025-02-19 17:03 | XMS_ITS | Clinical Summary ---
Author Organization [facility] Address [address] [place] [address] Phone Care Team Providers Care Geek Squad Agent Name Role Phone Carmen Hilliard NP Primary Care Provider [phone] Allergies No known active allergies Encounters Date Type Department Care Team Description 02/13/2025 1:41 PM EDT - 02/13/2025 11:59 PM EDT Hospital Encounter [facility] [address] [place] [address] Encounter for screening mammogram for malignant neoplasm of breast Discharge Disposition: Home or Self Care from Last 3 Months Surgical History Surgery Date Site/Laterality Comments OTHER SURGICAL HISTORY PROCEDURE: RI LIG/TRNSXJ FLP TUBE ABDL/VAG APPR UNI/BI OTHER SURGICAL HISTORY 10/28/2023 PROCEDURE: LAPAROSCOPY, SURGICAL/HYSTERECTOMY; COMMENT: Robotic assissted hysterectomy with salpingectomy BREAST ENHANCEMENT SURGERY W IMPLANT Medical History Medical History Date Comments Abnormal cytological finding in specimen from cervix 06/28/2002 DX:Abnormal cytological find ing in specimen from cervix; COMMENT: ASCUS + HPV Asthma DX:Asthma H/O left breast biopsy 11/30/2010 DX:H/O le ft breast biopsy; COMMENT: Fibroadenomata up to 2.5 cm in diameter no evidence of malignancy History of ovarian cyst 12/02/2018 DX:Histo ry of ovarian cyst; COMMENT: US Pelvis - 11/30/18 - 1516 HISTORY: The patient is a 32-year-old 2 para 2 female with pelvic pain. FINDINGS: Real-time transabdominal ultrasonography of the pelvis is performed. This is followed by a transvaginal examination for better evaluation of the uterus and adnexa. The uterus is again seen to be retroverted as also demonstrated on the prior joleen* S/P tubal ligation 10/11/2019 DX:S/P tubal ligation Family History Medical History Relation Name Comments Hypertension Maternal Grandfather Breast cancer Maternal Grandmother Hypertension Maternal Grandmother Diabetes Mother Hypertension Mother Colon cancer Neg Hx Ovarian cancer Neg Hx Pancreatic cancer Neg Hx Uterine cancer Neg Hx Relation Name Status Comments Maternal Grandfather Maternal Grandmother Alive Mother Social History Tobacco Use Types Packs/Day Years Used Date Smoking Tobacco: Never Smokeless Tobacco: Never Alcohol Use Standard Drinks/Week Comments Yes 0 (1 standard drink = 0.6 oz pur e alcohol) Comments No Sex and Gender Information Value Date Recorded Sex Assigned at Not on file Legal Sex Female 5:37 AM EST Gender Identity Not on file Sexual Orientation Not on file Obstetrics History Para Term AB IAB SAB Ectopic Multiple Livin g Live Births 2 Last Filed Vital Signs Vital Sign Reading Time Taken Comments Blood Pressure 111/62 11/01/2024 5:38 PM EDT Pulse 72 11/01/2024 5:38 PM EDT Temperature 37.1 C (98.8 F) 11/01/2024 5:38 PM EDT Respiratory Rate 16 11/01/2024 5:38 PM EDT Oxygen Saturation 99% 11/01/2024 5:38 PM EDT Inhaled Oxygen Concentration - - Weight 88.5 kg (195 lb) 02/13/2025 1:56 PM EDT Height 170.2 cm (5' 7 ) 02/13/2025 1:56 PM EDT Body Mass Index 30.54 02/13/2025 1:56 PM EDT Plan of Treatment Health Maintenance Due Date Last Done Comments Hepatitis C Screening 05/09/2022 Social Influencers of Health Screening 05/09/2022 Cervical Cancer Screening: Pap Smear 02/06/2023 02/07/2020, 01/22/2019 Depression Screening 06/06/2024 COVID-19 Vaccine ( season) 2025 10/16/2020, 09/18/2020 Influenza Vaccine (#1) 2025 02/13/2013 Breast Cancer Screening 02/13/2027 02/13/2025 DTaP,Tdap,and Td Vaccines (9 - Td or Tdap) 10/17/2033 10/18/2023, 12/30/2010, 04/22/1998, Additional history exists IPV Vaccines Completed 07/31/1985, 07/08, 05/08/1984, Additional history exists Hepatitis B Vaccines Completed 11/12/1997, 03/07/1997, 01/29/1997 MMR Vaccines Completed 07/26/2011, 01/10/1995 Hepatitis A Vaccines Aged Out 01/23/2018, 02/20/20 13 No longer eligible based on patient's age to complete this topic HIV Screening Completed 01/21/2021 Pneumococcal Vaccine: Pediatrics (0 to 5 Years) and At-Risk Patients (6 to 49 Years) Completed 10/18/2023 HIB Vaccines Aged Out No longer eligi ble based on patient's age to complete this topic HPV Vaccines Aged Out No longer eligi ble based on patient's age to complete this topic Meningococcal ACWY Vaccine Aged Out N o longer eligible based on patient's age to complete this topic Meningococcal B Vaccine Aged Out No l onger eligible based on patient's age to complete this topic RSV Immunization Patients Under 20 months Aged Out No longer eligible based on patient's age to complete this topic Varicella Vaccines Aged Out No longer eligible based on patient's age to complete this topic Procedures Procedure Name Priority Date/Time Associated Diagnosis Comments MG MAMMO DIGITAL SCREENING W IRVING BILAT Routine 02/13/2025 2:32 PM EDT Encounter for screening mammogram for malignant neoplasm of breast PAP SMEAR Routine 02/07/2020 from Last 3 Months or Most Recently Relevant to Health Maintenance Results * MG Mammo Digital Screening w Irving bilat (02/13/2025 2:32 PM EDT) Anatomical Region Laterality Modality Breast Bilateral Mammography 02/13/2025 2:41 PM EDT Impressions 02/13/2025 3:05 PM EDT Benign. BI-RADS CATEGORY: 2 - BENIGN RECOMMENDATION: Screening bilateral mammogram is recommended in 1 year. Mammo Location: [facility], [address] [place] [address], [id number], . -------- FINAL REPORT -------- Dictated By: Rafael Palacios Dictated Date: 02/13/2025 14:41 ET Assigned Physician: Rafael Palacios Reviewed and Electronically Signed By: Rafael Palacios Signed Date: 02/13/2025 15:05 ET Workstation ID: [id number] Transcribed By: Self Edit Transcribed Date: 02/13/2025 [...] year. Mammo Location: [facility], [address] [place] [address], [id number], . -------- FINAL REPORT -------- Dictated By: Rafael Palacios Dictated Date: 02/13/2025 14:41 ET Assigned Physician: Rafael Palacios Reviewed and Electronically Signed By: Rafael Palacios Signed Date: 02/13/2025 15:05 ET Workstation ID: [id number] Transcribed By: Self Edit Transcribed Date: 02/13/2025 14:41 ET us Zully Aguirre MD IMG BI PROCEDURES Fin al Result * Pap smear (02/07/2020) 02/07/2020 Narrative HISTORICAL TESTING LAB RESULTING AGENCY - 02/18/2020 12:26 PM EDT [id number] THINPREP PAP AND CELL BLOCK: NEGATIVE FOR SQUAMOUS INTRAEPITHELIAL LESION AND MALIGNANCY . RICHARD GIL , CT(ASCP) (CASE SCREENED 02 14 2020) SHIKHA ARMSTRONG M.D. , PATHOLOGIST (CASE ELECTRONICALLY SIGNED 02 15 2020) RESULT OF APTIMA HIGH RISK HPV ASSAY: HIGH RISK HPV: POSITIVE (SEROTYPES 16,18,31,33,35,39,45,51,52,56,58,59,66,68) RESULTS OF APTIMA HPV 16 AND 18/45 GENOTYPE ASSAY: HPV 16: NEGATIVE HPV 18/45: NEGATIVE COMPLETED ON 2020-02-12 ADEQUACY: SATISFACTORY ENDOCERVICAL/TRANSFORMATION ZONE COMPONENT PRESENT. SOURCE: THINPREP PAP HPV ANY DX: REFLEX 16 AND 18, CERVICAL, IMAGED CLINICAL INFORMATION: HPV ANY DIAGNOSIS. HORMONES, PAP HX NOT ENOUGH CELLS, NO LMP RECORDED [Z12.4] CB 02/12/20 us Taylor Quinn MD LAB CYTOLOGY ORDERABLES Fin al Result HISTORICAL TESTING LAB RESULTING AGENCY from Last 3 Months or Most Recently Relevant to Health Maintenance Insurance MEDICAID - [place] Care Teams Geek Squad Agent Relationship Specialty Start Date End Date Carmen Hilliard NP [address] [id number] PCP - General 10/12/16
--- OUTSIDE RECORDS SUMMARY | 2025-02-19 17:03 | XMS_ITS | Encounter Summary ---
Author Organization [employer] Address [address] [place] [address] 7 [place] [address] Care Team Providers Care Shoe Stitcher Name Role Phone Zully Alcocer MD Primary Care Provide r Doris Watts RN Unavailable [phone] Unavailable Encounter Details Date Type Department Care Team (Late st Contact Info) Description 08/20/2022 Orders Only [facility] [address] [place] [address] Arabella Dougherty FNP [address] [place] [address] Community acquired bacterial pneumonia (Primary Dx) Social History Tobacco Use Types Packs/Day Years Used Date Smoking Tobacco: Never Passive Smoke Exposure: Never Smokeless Tobacco: Never Alcohol Use Standard Drinks/Week Comments Never 0 (1 standard drink = 0.6 oz pur e alcohol) Comments Unknown Sex and Gender Information Value Date Recorded Sex Assigned at Female 04/05/2022 10:16 AM EDT Legal Sex Female 10:16 AM EDT Gender Identity Female 04/05/2022 10:16 AM EDT Sexual Orientation Straight 04/05/2022 10 :16 AM EDT COVID-19 Exposure Response Date Recorded In the last 10 days, have yo u been in contact with someone who was confirmed or suspected to have Coronavirus/COVID-19? No / Unsure 08/16/2022 1:34 PM EDT documented as of this encounter Plan of Treatment Not on file documented as of this encounter Visit Diagnoses Diagnosis Community acquired bacterial pneumonia- Primary Unspecified bacterial pneumonia documented in this encounter Care Teams Shoe Stitcher Relationship Specialty Start Date End Date Zully Alcocer MD [address] [place] [address] PCP - General Family Medicine 11/19/21 Doris Watts RN [address] [place] [id number] Registered Nurse Family Medicine 11/02/24 [address]ves 11/02/24 12/13/24 documented as of this encounter
--- OUTSIDE RECORDS SUMMARY | 2025-02-19 17:03 | XMS_ITS | Encounter Summary ---
Author Organization [employer] Address [address] [facility] [address] [place] [address] Care Team Providers Care Paid Internship Name Role Phone Zully Alcocer MD Primary Care Provide r Doris Watts RN Unavailable [phone] Encounter Details Date Type Department Care Team (Latest Contact Info) Description 02/19/2025 Travel Social History Tobacco Use Types Packs/Day Years [...] AM EDT documented as of this encounter Plan of Treatment Not on file documented as of this encounter Visit Diagnoses Not on filedocumented in this encounter Additional Health Concerns Assessment Noted Time PHQ-9 Depression Total Score: 6 11/03/19 25 1:41 PM EDT documented as of this encounter Care Teams Paid Internship Relationship Specialty Start Date End Date Zully Alcocer MD [address] [place] [id number] PCP - General Family Medicine 11/19/21 Doris Watts RN [address] [place] [id number] Registered Nurse Family Medicine 11/02/24 documented as of this encounter
--- OUTSIDE RECORDS SUMMARY | 2025-02-19 17:03 | XMS_ITS | Encounter Summary ---
Author Organization [employer] Address [address] [facility] 7t [place] [address] Care Team Providers Care Pole Inspector Name Role Phone Zully Alcocer MD Primary Care Provide r Doris Watts RN Unavailable [phone] Unavailable Reason for Visit * Reason Comments Med Refill Encounter Details Date Type Department Care Team (Late st Contact Info) Description 10/20/2023 Refill [facility] [address] [place] [address] Jinny Navarro MD [address] [place] [address] Social History Tobacco Use Types Packs/Day Years Used Date Smoking Tobacco: Never Passive Smoke Exposure: Never Smokeless Tobacco: Never Alcohol Use Standard Drinks/Week Comments Yes 0 (1 standard drink = 0.6 oz pur e alcohol) oca Housing Stability Answer Date Recorded What is your housing situation today? I have tobi odonnell 03/31/[address] you [...] on filedocumented in this encounter Care Teams Pole Inspector Relationship Specialty Start Date End Date Zully Alcocer MD [address] [place] [address] PCP - General Family Medicine 11/19/21 Doris Watts RN [address] [place] [address] Registered Nurse Family Medicine 11/02/24 [address] 11/02/24 12/13/24 documented as of this encounter
--- OUTSIDE RECORDS SUMMARY | 2025-02-19 17:03 | XMS_ITS | Encounter Summary ---
Author Organization [employer] Address [address] [place] [address] 7 [place] [address] Care Team Providers Care Drum Straightener Name Role Phone Zully Alcocer MD Primary Care Provide r Doris Watts RN Unavailable [phone] Reason for Visit * Reason Onset Date Comments Nurse Triage 02/19/2025 Encounter Details Date Type Department Care Team (Late st Contact Info) Description 02/19/2025 Telephone [facility] [address] [place], [place] [phone] Zully Alcocer MD [address] [place], [place] [phone] Nurse Triage Social History Tobacco Use Types [...] encounter Miscellaneous Notes * Telephone Encounter - Bronwyn Jauregui RN - 02/19/2025 10:28 AM EDT Called pt. She states that she has been taking her Asthma pump for her Asthma x 1 1/2 weeks and does not feel that it is working. Pt. Has had a cough x 2 weeks, SOB, wheezing and feels flushed at times. No fever. Pt states cough is tight and her usual therapy which is her Asthma inhaler is not helping her sx clear. Pt. Is currently at work and slightly SOB. No audible wheezing at present. Advised pt. To come into office for evaluation. Appt. Made for 1130am today with Dr. Magdaleno. Protocol Used: Asthma Attack (Adult) Protocol-Based Disposition: See in Office or Video Visit Today- appt at 1130am today Video visit offer not recorded Positive Triage Questions: * Patient wants to be seen * Mild asthma attack (e.g., no SOB at rest, mild SOB with walking, speaks normally in sentences, mild wheezing) and lasting > 24 hours on prescribed treatment * Mild wheezing comes and goes and lasts > 3 days * All higher-acuity triage questions were negative Care Advice Discussed: * Asthma Attack - Symptoms * Asthma Attack - Treatment - Quick-Relief Medicine * Drink Plenty of Liquids and Use a Humidifier * Hay Fever and Antihistamine Medicines * Avoid Asthma Triggers * Remove Allergens * Telephone Encounter - Yulia Isaac White - 02/19/2025 10:20 AM EDT Symptom: Chest Pain - Adult Outcome: Transfer to a nurse or provider NOW! Reason: Heaviness on chest The caller accepted this outcome. Pt stated her asthma pomp is not working at the moment, no asthma attack for now. Contact pt at [phone] documented in this encounter Plan of Treatment Not on file documented as of this encounter Visit Diagnoses Not on filedocumented in this encounter Additional Health Concerns Assessment Noted Time PHQ-9 Depression Total Score: 6 11/03/19 25 1:41 PM EDT documented as of this encounter Care Teams Drum Straightener Relationship Specialty Start Date End Date Zully Alcocer MD [address] [place] [address] PCP - General Family Medicine 11/19/21 Doris Watts RN [address] [place] [id number] Registered Nurse Family Medicine 11/02/24 documented as of this encounter
--- OUTSIDE RECORDS SUMMARY | 2025-02-19 17:03 | XMS_ITS | Encounter Summary ---
Author Organization [employer] Address [address] [facility] 7[address] [place] [address] Care Team Providers Care Mobile Paramedical Examiner Name Role Phone Zully Alcocer MD Primary Care Provide r Doris Watts RN Unavailable [phone] Unavailable Encounter Details Date Type Department Care Team (Late st Contact Info) Description 03/22/2024 Orders Only [facility] [address] [place] [address] Provider, MD Emily Social History Tobacco Use [...] t he electric, gas, oil or water [employer] threatened to shut off services in your [...] Procedure Name Priority Date/Time Associated Diagnosis Comments HM PAP/HPV Routine 02/07/2020 1:22 PM EDT documented in this encounter Results * HM PAP/HPV (02/07/2020 1:22 PM EDT) Historical Provider HEALTH MAINTENANCE Final Result documented in this encounter Visit Diagnoses Not on filedocumented in this encounter Care Teams Mobile Paramedical Examiner Relationship Specialty Start Date End Date Zully Alcocer MD [address] [place] [address] PCP - General Family Medicine 11/19/21 Doris Watts RN [address] [place] [id number] Registered Nurse Family Medicine 11/02/24 [address]ves 11/02/24 12/13/24 documented as of this encounter
== END 2025-02-19 13:07 | disposition home or self-care (01) ==
LOC: HO.HHCX 13:06
PROVIDERS: PCP Internal Medicine; Visit Provider Internal Medicine
DX: J45.21 Mild intermittent asthma with (acute) exacerbation (principal)
CPT/HCPCS: 71046

== ENCOUNTER → 2025-02-19 13:12 | Outpatient (BNV) | payer MEDICAID, SELFPAY | PROVIDERS: PCP Internal Medicine; Visit Provider Radiology Diagnostic Radiology | DX: J45.901 Unspecified asthma with (acute) exacerbation (principal) | CPT/HCPCS: 71046 ==